=== PATIENT | male | born 1955 | race Caucasian/White ===

== ENCOUNTER 2018-12-28 02:36 | Emergency (ER) | payer OTHER ==
[2018-12-28] MEDS: BACITRACIN 0.9 GM OINT TOP (04:38)
== END 2018-12-28 05:04 | disposition home or self-care (01) ==
LOC: FTE 02:36
DX: S91.102A Unspecified open wound of left great toe without damage to nail, initial encounter (principal); E11.9 Type 2 diabetes mellitus without complications; I10 Essential (primary) hypertension; X58.XXXA Exposure to other specified factors, initial encounter; Y92.9 Unspecified place or not applicable
CPT/HCPCS: 99283; Z7502